=== PATIENT | female | born 1930 | race Caucasian/White ===

== ENCOUNTER 2016-11-09 09:11 | Emergency (ER) | payer MEDICARE, OTHER ==
[2016-11-09] MEDS ORDERED: NS 0.9% 1000 ML* 1,000 ML IV ONE (10:30)
[2016-11-09] MEDS ORDERED: Meclizine TAB* 12.5 MG PO ONE (10:30)
[2016-11-09] MEDS ORDERED: Diazepam TAB(*) 5 MG PO ONE (10:30)
--- NOTE | 2016-11-09 10:57 | RAD ---
HISTORY: Vertigo COMPARISONS: March 25, 2016 TECHNIQUE: Multiple contiguous axial CT scans were obtained of the head without intravenous contrast. FINDINGS: HEMORRHAGE/INFARCT: There is no hemorrhage or acute infarct. MASSES/SHIFT: There is no mass or shift. EXTRA-AXIAL SPACES: There are no extra-axial fluid collections. SULCI AND VENTRICLES: The sulci and ventricles are normal in size and position for the patient's stated age. CEREBRUM: There is hypoattenuation of the periventricular and subcortical white matter. BRAINSTEM: There are no focal parenchymal abnormalities. CEREBELLUM: There are no focal parenchymal abnormalities. VESSELS: There is calcification of the cavernous segments of the internal carotid arteries bilaterally and of the distal vertebral arteries bilaterally. PARANASAL SINUSES: The paranasal sinuses are clear. ORBITS: The orbits are unremarkable. BONES AND SOFT TISSUE: No bone or soft tissue abnormalities are noted. OTHER: None IMPRESSION: NO ACUTE INTRACRANIAL PATHOLOGY. CHRONIC SMALL VESSEL ISCHEMIC CHANGES.
[2016-11-09 11:19] LABS: Hematocrit 40 % (35-47); Hemoglobin 13.3 g/dl (12.0-16.0); Mean Corpuscular HGB Conc 34 g/dl (31-36); Mean Corpuscular Hemoglobin 30 pg (27-31); Mean Corpuscular Volume 90 fL (80-97); Mean Platelet Volume 8 um3 (7.4-10.4); Red Cell Distribution Width 13 % (10.5-15); White Blood Count 8.1 10^3/ul (3.5-10.8)
--- NOTE | 2016-11-09 11:32 | RAD ---
HISTORY: Vertigo COMPARISONS: March 25, 2016 VIEWS: 2: Frontal dual-energy and lateral views of the chest. FINDINGS: CARDIOMEDIASTINAL SILHOUETTE: The cardiomediastinal silhouette is normal. ILANA: The ilana are normal. PLEURA: The costophrenic angles are sharp. No pleural abnormalities are noted. LUNG PARENCHYMA: There is hyperinflation with flattening of the diaphragm and expansion of the AP diameter of the chest. ABDOMEN: The upper abdomen is clear. There is no subphrenic gas. BONES AND SOFT TISSUES: Degenerative changes are noted along the spine. There is diffuse osteopenia. OTHER: None. IMPRESSION: HYPERINFLATION, CONSISTENT WITH COPD. NO ACTIVE CARDIOPULMONARY DISEASE.
[2016-11-09 11:38] LABS: ALT 11 U/L (7-52); AST 14 U/L (13-39); Albumin 4.1 g/dL (3.2-5.2); Alkaline Phosphatase 92 U/L (34-104); Anion Gap 7 mmol/L (2-11); BUN/Creatinine Ratio 14.9 (8-20); Blood Urea Nitrogen 10 mg/dL (6-24); C Reactive Protein < 1.00 mg/L (< 5.00); CO2 Carbon Dioxide 27 mmol/L (22-32); Calcium 9.3 mg/dL (8.6-10.3); Chloride 98 mmol/L (101-111); EGFR African American 107.6 (>60); EGFR Non-African American 83.7 (>60); Globulin 3.2 g/dL (2-4); Glucose 109 mg/dL (70-100); Magnesium 2.2 mg/dL (1.9-2.7); Potassium 4.2 mmol/L (3.5-5.0); Sodium 132 mmol/L (133-145); Total Protein 7.3 g/dL (6.4-8.9)
[2016-11-09 12:07] LABS: Urine Bacteria Absent (Absent); Urine Bilirubin Negative (Negative); Urine Glucose Negative (Negative); Urine Nitrite Negative (Negative)
[2016-11-09 12:15] LABS: TSH (Thyroid Stimulating Horm) 1.27 mcIU/mL (0.34-5.60)
[2016-11-09 12:40] VITALS: BP 154/68
--- NOTE | 2016-11-09 17:10 | ED ---
Nabil Fernando Billy, scribed for Crow Lizarraga MD on 11/09/16 at 1026 . Dizziness - HPI Summary HPI Summary: Patient is an 86 year-old female coming to [facility] with her son for evaluation of 10 days of dizziness, roomspinning, and nausea. She states that her symptoms are worse with head position change. This morning, she was able to tolerate her medications. However, later on in the morning, as she was seated at the kitchen table, she felt near-syncopal and weak. She has had chills but denies any earache, tinnitus, sinus pressure, postnasal drip. Denies chest pain. She has had vertigo in the past, with the most recent episode in March 2016. Patient was seen by her PCP at [facility] yesterday. Per patient, her physician did not prescribe her any medications for vertigo at that visit. - History Of Current Complaint Chief Complaint: EDDizziness Stated Complaint: DIZZY/RT SIDE ABD PAIN Time Seen by Provider: 11/09/16 10:17 Hx Obtained From: Patient Timing: Intermittent Episode Lasting Severity Initially: Moderate Severity Currently: Moderate Character: Room Spinning, Dizzy Aggravating Factor(s): Change In Head Position Alleviating Factor(s): Lying Down Associated Signs And Symptoms: Positive: Nausea - Allergies/Home Medications Allergies/Adverse Reactions: Allergies Allergy/AdvReac Type Severity Reaction Status Date / Time Erythromycin Allergy Rash Verified 06/21/15 13:34 PMH/Surg Hx/FS Hx/Imm Hx Cardiovascular History: Reports: Hx Hypertension Neurological History: Reports: Hx Transient Ischemic Attacks (TIA) - 7 years ago - Cancer History Hx Chemotherapy: No Hx Radiation Therapy: No - Surgical History Surgery Procedure, Year, and Place: Tonsillectomy age 21, HYSTERECTOMY Infectious Disease History: No Infectious Disease History: Denies: Traveled Outside the [place] in Last 30 Days - Family History Known Family History: Positive: Hypertension - Social History Alcohol Use: None Hx Substance Use: No Substance Use Type: Reports: None Hx Tobacco Use: No Smoking Status (MU): Never Smoked Tobacco Review of Systems Positive: Chills Negative: Sore Throat, Ear Ache, Nasal Discharge Negative: Chest Pain Positive: Nausea Neurological: Other - dizziness All Other Systems Reviewed And Are Negative: Yes Physical Exam - Summary Physical Exam Summary: VITAL SIGNS: Reviewed. GENERAL: Patient is a well developed and nourished female who is lying comfortable in the stretcher. Patient is not in any acute respiratory distress. HEAD AND FACE: No signs of trauma. No ecchymosis, hematomas or skull depressions. No sinus tenderness. EYES: PERRLA, EOMI x 2, No injected conjunctiva, no nystagmus. No photophobia. EARS: Hearing grossly intact. Ear canals and tympanic membranes are within normal limits. MOUTH: Oropharynx within normal limits. NECK: Supple, trachea is midline, no adenopathy, no JVD, no carotid bruit, no c- spine tenderness, neck with full ROM. No meningeal signs, no Kernig's or brudzinskis signs. CHEST: Symmetric, no tenderness at palpation LUNGS: Clear to auscultation bilaterally. No wheezing or crackles. CVS: Regular rate and rhythm, S1 and S2 present, no murmurs or gallops appreciated. ABDOMEN: Soft, non-tender. No signs of distention. No rebound no guarding, and no masses palpated. Bowel sounds are normal. EXTREMITIES: FROM in all major joints, no edema, no cyanosis or clubbing. NEURO: Alert and oriented x 3. No acute neurological deficits. Speech is normal and follows commands. SKIN: Dry and warm Triage Information Reviewed: Yes Vital Signs On Initial Exam: Initial Vitals Temp Pulse Resp BP Pulse Ox 97.8 F 75 18 186/75 100 11/09/16 09:13 11/09/16 09:13 11/09/16 09:13 11/09/16 09:13 11/09/16 09:13 Vital Signs Reviewed: Yes Diagnostics - Vital Signs Vital Signs Temp Pulse Resp BP Pulse Ox 11/09/16 09:13 97.8 F 75 18 186/75 100 - Laboratory Result Diagrams: 11/09/16 11:10 11/09/16 11:10 Lab Statement: Any lab studies that have been ordered have been reviewed, and results considered in the medical decision making process. - Radiology CXR Radiology Interpretation Completed By: Radiologist - Hyperinflation, consistent with COPD. No active cardiopulmonary disease. - CT Brain CT Interpretation Completed By: Radiologist - No acute intracranial pathology. Chronic small vessel ischemic changes. - EKG 09 EKG Interpretation: NSR 69 bpm, ST depressions in V4 V5 V6, similar to EKG on 9/ 22/10 Re-Evaluation - Re-Evaluation First Eval Re-Evaluation Time: 13:09 Change: Improved Comment: Son has requested further tests and imaging. The patient, however, is feeling much better now. Second Eval Re-Evaluation Time: 13:25 Comment: Discussed with patient and her son, in-depth, the plan for discharge, and that further imaging is not necessary at this time, per Dr. Myrick. They agree and understand. Dizzy Course/Dx - Course Assessment/Plan: Patient is an 86 year-old female coming to [facility] with her son for evaluation of 10 days of dizziness, roomspinning, and nausea. She states that her symptoms are worse with head position change. This morning, she was able to tolerate her medications. However, later on in the morning, as she was seated at the kitchen table, she felt near-syncopal and weak. She has had chills but denies any earache, tinnitus, sinus pressure, postnasal drip. Denies chest pain. She has had vertigo in the past, with the most recent episode in March 2016. Patient was seen by her PCP at [facility] yesterday. Per patient, her physician did not prescribe her any medications for vertigo at that visit. Test results WNL except for sodium of 132, glucose of 109. UA shows no UTI. CXR shows COPD without active cardiopulmonary disease. CT brain shows no acute intracranial pathology. In the ED course, the patient was given IV fluids, valium and antivert for the dizziness and vertigo, and the symptoms improved. At this time, I ambulated the patient around the ED with a good and steady walk , and she felt no dizziness. I also discussed the case with the patients son who requested an MRI of the brain and neck. I explained to the patient that the patients symptoms have already improved. The patient has been having these symptoms for the last 10 days, even if the patient has a posterior infarct, at this point, there is no treatment which would reverse the injury. He requested to speak with one of the neurologists to obtain MRI imaging. So I discussed the case with Dr. Myrick who did not agree with MRI/MRA imaging of the brain or neck. If needed, they could follow up as an outpatient, but not as emergent testing. The patients son was not very happy with this decision, however, he understands and agrees. I instructed the patient and her son that if any changes , such as worsening of vertigo, weakness in the upper or lower extremities, the patient should return immediately to the ED for further workup and management. The patient is hemodynamically stable, A&Ox3. - Diagnoses Differential Diagnosis/HQI/PQRI: CVA, Meniere's Disease, Transient Ischemic Attack, Other - Vertigo Provider Diagnoses: Vertigo - Provider Notifications Discussed Care Of Patient with: Dr. Myrick (neurology) at 1320: further imaging is not necessary at this time. Discharge - Discharge Plan Condition: Stable Disposition: HOME Prescriptions: Meclizine TAB* [Antivert 12.5 TAB*] 25 mg PO TID PRN #30 tab PRN Reason: Vertigo Patient Education Materials: Vertigo (ED) Referrals: Aris Fishman MD [Primary Care Provider] - The documentation as recorded by the Nabil solis Billy accurately reflects the service I personally performed and the decisions made by me, Crow Lizarraga MD.
== END 2016-11-09 14:20 | disposition home or self-care (01) ==
LOC: ED 09:11
DX: R42 Dizziness and giddiness (principal); R11.0 Nausea; R68.83 Chills (without fever)
CPT/HCPCS: 36415; 70450; 71020; 80053; 81003; 81015; 83605; 83735; 83880; 84443; 84484; 85025; 86140; 87086; 93005; 96360; 99283; A9270-GY

== ENCOUNTER 2018-05-18 10:00 | Emergency (ER) | payer MEDICARE, BC ==
[2018-05-18] MEDS ORDERED: Ibuprofen TAB* 400 MG PO ONE (10:22)
--- NOTE | 2018-05-18 10:29 | UC ---
Back Pain HPI - HPI Summary HPI Summary: 88-year-old woman comes in to clinic today with a chief complaint of back pain is been going on for about a week. It's in the middle lower back it's worse with twisting turning bending. No weakness or numbness the pain does not radiate down the legs. She had been shoveling snow prior to the pain onset. Otherwise no known trauma. During review of systems the patient talks about concern of blood pressure heart attack and stroke bladder prolapse and a variety of other medical issues. She denies any chest pain or focal weakness or numbness. She does say that she urinates frequently. Denies any fevers or chills. - History of Current Complaint Stated Complaint: BACK PAIN Time Seen by Provider: 05/18/18 10:06 - Allergies/Home Medications Allergies/Adverse Reactions: Allergies Allergy/AdvReac Type Severity Reaction Status Date / Time erythromycin base Allergy Rash Verified 05/18/18 10:06 Home Medications: Home Medications Polyethylene Glycol 3350* [Miralax*] 17 gm PO BEDTIME 05/18/18 [History] dilTIAZem HCl [Diltiazem HCl ER] 240 mg PO DAILY 05/18/18 [History Confirmed ] PMH/Surg Hx/FS Hx/Imm Hx Previously Healthy: Yes Endocrine History: Dyslipidemia Cardiovascular History: Hypertension - Surgical History Surgical History: Yes Surgery Procedure, Year, and Place: Tonsillectomy age 21, HYSTERECTOMY - Family History Known Family History: Positive: None, Hypertension - Social History Alcohol Use: None Substance Use Type: None Smoking Status (MU): Never Smoked Tobacco - Immunization History Most Recent Influenza Vaccination: none Most Recent Tetanus Shot: unable to determine Most Recent Pneumonia Vaccination: unable to determine but had vaccine about 10 years ago Review of Systems All Other Systems Reviewed And Are Negative: Yes Constitutional: Positive: Negative Skin: Positive: Negative Eyes: Positive: Negative ENT: Positive: Negative Respiratory: Positive: Negative Cardiovascular: Positive: Negative Gastrointestinal: Positive: Negative Genitourinary: Positive: Frequency Motor: Positive: Negative Neurovascular: Positive: Negative Musculoskeletal: Positive: Other: - SEE HPI Neurological: Positive: Negative Psychological: Positive: Negative Is Patient Immunocompromised?: No Physical Exam Triage Information Reviewed: Yes Appearance: Well-Appearing, Well-Nourished, Pain Distress - MILD, WITH BACK MOVEMENT Vital Signs Reviewed: Yes Eye Exam: Normal Eyes: Positive: Conjunctiva Clear Neck exam: Normal Neck: Positive: Supple Respiratory: Positive: Lungs clear, Normal breath sounds, No respiratory distress Cardiovascular: Positive: RRR Abdomen Description: Positive: Soft, Other: - Patient reports mild tenderness to palpation in the lower abdomen patient describes mild tenderness in the lower abdomen with palpation Bowel Sounds: Positive: Present Musculoskeletal Exam: Normal Musculoskeletal: Positive: Strength Intact, ROM Intact Neurological Exam: Normal Neurological: Positive: Alert, Muscle Tone Normal Psychological Exam: Normal Psychological: Positive: Age Appropriate Behavior Skin Exam: Normal Back Pain Course/Dx - Course Course Of Treatment: Order Information: CT SPINE LUMBAR W/O. Accession Number: [id number]. CPT: 53208. HISTORY: LOW BACK PAIN. COMPARISONS: None. TECHNIQUE: Multiple contiguous axial CT scans were obtained of the lumbar spine without. intravenous contrast, with coronal and sagittal multiplanar reformations. FINDINGS: There is a transitional last lumbar type vertebral body which will be labeled S1. for the purposes of counting. SPINAL CANAL: Evaluation of the central canal is limited on CT technique; however, there. is no obvious canalicular mass or epidural hemorrhage. ALIGNMENT: There is a scoliotic curvature of the spine. There is grade 1 anterolisthesis. of L5 on S1. There is trace retrolisthesis of L2 on L3 and L3-L4 and L4 on L5. VERTEBRAL BODIES: There is multilevel anterolateral marginal osteophyte formation with. sclerotic reactive endplate changes most pronounced at L2-L3, L3-L4, and L4-L5. JOINTS: There is facet osteoarthritis most pronounced at L4- L5 and L5-S1. MUSCULATURE: There is mild fatty infiltration. INTERVERTEBRAL DISCS: There is diffuse loss of intervertebral disc height throughout the. spine. AXIAL IMAGES: T12-L1: There is no osseous neural foraminal narrowing or central canal stenosis. L1-L2: There is no osseous neural foraminal narrowing or central canal stenosis. L2-L3: There is a broad-based disc bulge. There is marginal osteophyte formation at the. neural foramina bilaterally. There is moderate right neuroforaminal narrowing. There is. mild narrowing of the central canal. L3-L4: There is a broad-based disc bulge. There is moderate bilateral neuroforaminal. narrowing. There is moderate narrowing of the central canal. L4-L5: There is a broad-based disc bulge. There is ligamentous and facet hypertrophy. There is severe bilateral neuroforaminal narrowing. There is severe narrowing of the. central canal. L5-S1: There is a broad- based disc bulge/rolled disc. There is moderate bilateral. neuroforaminal narrowing. There is severe narrowing of the central canal. SOFT TISSUES: There is atherosclerosis of the aorta. A right ovarian cyst is noted. measuring simple fluid in attenuation and 2.2 cm in size. OTHER: None. IMPRESSION: 1. SCOLIOSIS. 2. DEGENERATIVE DISC DISEASE AND OSTEOARTHRITIS. 3. THERE IS MULTILEVEL NEUROFORAMINAL NARROWING DESCRIBED ABOVE. 4. THERE IS SEVERE NARROWING OF THE CENTRAL CANAL AT L4-L5, AND L5-S1 WITH MODERATE. NARROWING AT L3-L4 AND MILD NARROWING L2-L3. 5. 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 6. THERE IS A 2.2 CM RIGHT OVARIAN CYST MEASURING SIMPLE FLUID IN ATTENUATION. ___ . <Electronically signed by Krishna Jaffe MD in OV> 05/18/18 1119. Order Information: CT ABD/PEL W/O. Accession Number: [id number]. CPT: 05596. CLINICAL HISTORY: ABD PAIN/BACK PAIN. COMPARISON: October 13, 2004. TECHNIQUE: Multiple contiguous axial CT scans were obtained of the abdomen and pelvis,. without intravenous contrast enhancement. Coronal and sagittal multiplanar reformations. are submitted for review. Oral contrast was not administered. FINDINGS: Evaluation is limited due to the lack of intravenous contrast. This limits evaluation of. the solid organs and vasculature. LUNG BASES: The lung bases are clear. LIVER: The liver is normal in shape, size, contour, and attenuation. BILE DUCTS: There is no intrahepatic or extrahepatic biliary dilatation. GALLBLADDER: The gallbladder is normal, without pericholecystic inflammatory change. PANCREAS: The pancreas is normal, without mass or ductal dilatation. SPLEEN: Normal in size and appearance. UPPER GI TRACT: Evaluation of the gastrointestinal tract is limited by incomplete gastric. distention. There is a small sliding hiatal hernia. SMALL BOWEL AND MESENTERY: The small bowel is normal in contour, course, and caliber. There is no obstruction or dilatation. COLON: The colon is normal in contour, course, caliber. There is no pericolonic. inflammatory change. There is large amount stool throughout the colon. There is a tubular,. vermiform, hollow viscus that is blind ending, and originates from the cecum, consistent. with a normal appendix. There is no periappendiceal inflammatory change. This is best seen. on axial images 43 through 46. ADRENALS: Normal bilaterally. KIDNEYS: The kidneys are normal in shape, size, contour, and axis. There is no. hydronephrosis or nephrolithiasis. BLADDER: The bladder is smooth in contour. PELVIC ORGANS: The uterus and adnexa are grossly normal for technique. AORTA: There is calcific atherosclerotic disease of the abdominal aorta and its branches,. without aneurysmal dilatation. IVC: Unremarkable. LYMPH NODES: There is no lymphadenopathy by size criteria. ABDOMINAL WALL: There is no evidence for abdominal wall hernia. BONES AND SOFT TISSUES: There is a scoliotic curvature of the spine. There is diffuse. osteopenia. Degenerative changes are noted of the spine and hips. OTHER: None. IMPRESSION: 1. ATHEROSCLEROSIS. 2. SMALL HIATAL HERNIA. 3. DEGENERATIVE CHANGES. 4. NO ACUTE NONCONTRAST CT PATHOLOGY OF THE VISUALIZED ABDOMEN OR PELVIS. . <Electronically signed by Krishna Jaffe MD in [facility]> 1109. I discussed the CT and urine results with the patient and her . Pain is decreased with ibuprofen 400 mg by mouth in clinic. Urine has some leukocytes. Patient has had some urinary frequency therefore we will treat for UTI at this time. I let the patient know if she has any worsening of her condition with pain fevers she feels ill abdominal pain weakness numbness she needs to get reevaluated right away. - Differential Dx/Diagnosis Provider Diagnosis: UTI (urinary tract infection), Low back pain Discharge - Sign-Out/Discharge Documenting (check all that apply): Patient Departure All imaging exams completed and their final reports reviewed: Yes - Discharge Plan Condition: Stable Disposition: HOME Prescriptions: Nitrofurantoin Monohyd/M-Cryst [Macrobid 100 mg Capsule] 100 mg PO BID #14 cap Patient Education Materials: Urinary Tract Infection in Women (ED), Acute Low Back Pain (ED), Lower Back Exercises (ED) Referrals: Julia Kern MD [Primary Care Provider] - Additional Instructions: FOLLOW UP WITH YOUR DOCTOR. GET RECHECKED FOR ANY WORSENING OF YOUR CONDITION; FEVER, WEAKNESS, NUMBNESS, YOU FEEL ILL, PAIN OR QUESTIONS OR CONCERNS. - Billing Disposition and Condition Condition: STABLE Disposition: Home
[2018-05-18 10:32] VITALS: BP 195/86
== END 2018-05-18 12:00 | disposition home or self-care (01) ==
LOC: UCEAST 10:00
DX: N39.0 Urinary tract infection, site not specified (principal); M54.5 Low back pain; Z88.1 Allergy status to other antibiotic agents; I10 Essential (primary) hypertension
CPT/HCPCS: 72131; 74176; 81003; 87086; 99212; A9270-GY; G0463

== ENCOUNTER 2019-03-23 09:00 | Emergency (ER) | payer MEDICARE, BC ==
--- NOTE | 2019-03-23 10:19 | UC ---
Back Pain HPI - HPI Summary HPI Summary: 89 yo female with left mid thoraic back pain x 2 days severe no relief with tylenol has had shingles in past and states this does not feel like shingles no falls no CP or SOB pain keep her up last ppm states she tolerated tramadol well son confirms and stated he can help her home and keep an eye on her no UTI symptoms pain worse with movement /twiosting/bending no abd pain - History of Current Complaint Chief Complaint: UCBackPain Stated Complaint: BACK PAIN Time Seen by Provider: 03/23/19 09:59 Hx Obtained From: Patient Onset/Duration: Gradual Onset, Lasting Days Timing: Constant Severity Initially: Severe Severity Currently: Severe Pain Intensity: 9 Pain Scale Used: 0-10 Numeric Back Pain: Is Discrete @ Character: Dull, Aching, Throbbing, Spasmodic Aggravating Factor(s): Movement, Bending Alleviating Factor(s): Nothing Associated Signs And Symptoms: Positive: Negative Related History: Similar Episode Dx As - Back pain/strain Full Body (No Head): 1 - pain here - Allergies/Home Medications Allergies/Adverse Reactions: Allergies Allergy/AdvReac Type Severity Reaction Status Date / Time erythromycin base Allergy Rash Verified 03/23/19 09:25 PMH/Surg Hx/FS Hx/Imm Hx Previously Healthy: Yes Cardiovascular History: Hypertension - Surgical History Surgical History: Yes Surgery Procedure, Year, and Place: Tonsillectomy age 21, HYSTERECTOMY - Family History Known Family History: Positive: None, Hypertension - Social History Alcohol Use: None Substance Use Type: None Smoking Status (MU): Never Smoked Tobacco - Immunization History Most Recent Influenza Vaccination: none Most Recent Tetanus Shot: unable to determine Most Recent Pneumonia Vaccination: unable to determine but had vaccine about 10 years ago Review of Systems All Other Systems Reviewed And Are Negative: Yes Constitutional: Positive: Negative Skin: Positive: Negative Eyes: Positive: Negative ENT: Positive: Negative Respiratory: Positive: Negative Cardiovascular: Positive: Negative Gastrointestinal: Positive: Negative Genitourinary: Positive: Negative Motor: Positive: Negative Neurovascular: Positive: Negative Musculoskeletal: Positive: Other: - back pain as discussed Neurological: Positive: Negative Psychological: Positive: Negative Physical Exam Triage Information Reviewed: Yes Appearance: Well-Appearing, No Pain Distress, Well-Nourished Vital Signs: Initial Vital Signs Temp 98.1 F 03/23/19 09:18 Pulse 72 03/23/19 09:18 Resp 18 03/23/19 09:18 BP 188/84 03/23/19 09:18 Pulse Ox 99 03/23/19 09:18 Vital Signs Reviewed: Yes Eyes: Positive: Conjunctiva Clear ENT: Positive: Hearing grossly normal, Pharynx normal. Negative: Pharyngeal erythema, Nasal congestion, Nasal drainage, Trismus, Muffled voice, Hoarse voice Dental: Negative: Abscess @ Neck: Positive: Supple Respiratory: Positive: Lungs clear, Normal breath sounds, No respiratory distress, No accessory muscle use Cardiovascular: Positive: RRR, No Murmur Abdomen Description: Positive: Nontender, No Organomegaly. Negative: Bruit Bowel Sounds: Positive: Present Musculoskeletal: Positive: ROM Intact, No Edema Neurological: Positive: Alert Psychological Exam: Normal Skin Exam: Normal - Additional Comments -SLR normal gait Dtrs symmetrical Procedures - Sedation Patient Received Moderate/Deep Sedation with Procedure: No Diagnostics - Radiology No standard instances Radiology Interpretation Completed By: Radiologist Summary of Radiographic Findings: scoliosis. DDD - EKG Cardiac Rate: NL Cardiac Rhythm: Sinus: Normal Ectopy: None ST Segment: Normal Back Pain Course/Dx - Differential Dx/Diagnosis Provider Diagnosis: Degenerative disk disease Discharge ED - Sign-Out/Discharge Documenting (check all that apply): Patient Departure All imaging exams completed and their final reports reviewed: Yes - Discharge Plan Condition: Stable Disposition: HOME Prescriptions: traMADol TAB* [Ultram*] 25 mg PO Q6HR PRN #8 tab MDD 4 PRN Reason: Pain - Severe Patient Education Materials: Degenerative Disc Disease (ED) Referrals: Julia Kern MD [Primary Care Provider] - 3 Days Additional Instructions: continue tylenol tramadol will cause drowsiness take only when necessary - Billing Disposition and Condition Condition: STABLE Disposition: Home
[2019-03-23] MEDS ORDERED: traMADol TAB* 50 MG PO ONE ×2 (11:10→11:42)
[2019-03-23 11:26] VITALS: BP 202/85
== END 2019-03-23 11:52 | disposition home or self-care (01) ==
LOC: UCEAST 09:00
DX: M51.34 Other intervertebral disc degeneration, thoracic region (principal); I10 Essential (primary) hypertension
CPT/HCPCS: 72080; 81003; 87086; 93005; 99212; A9270-GY; G0463

== ENCOUNTER 2019-03-25 00:14 | Emergency (ER) | payer MEDICARE, BC ==
--- OUTSIDE RECORDS SUMMARY | 2019-03-25 00:32 | XMS REPORT | Summary of Care ---
:1930 Author Organization [facility] Address [address] [facility] [place] [address] Care Team Providers Name Role Phone Julia Kern Primary Care Provider Reason for Visit Reason Comments Back Pain c/o mid back pain, started Friday night. Denies any injury. Did a little lifting. Urgent care yesterday. EKG/urine etc all negative. Still with pain with moving d/t pain medication Hypertension running high Encounter Details Date Type Department Care Team Description 03/24/2019 Office Visit [place] [facility] Julia Kern MD Essential hypertension (Primary Dx); Medicine [address] Pedal edema; [address] [place] [address] Sprain of costal cartilage, [place] [address] [phone] Allergies Active Allergy Reactions Severity Noted Date Comments Erythromycin Rash 11/08/2016 Losartan Other 12/06/2016 Elevation in potassium documented as of this encounter (statuses as of 03/24/2019) Medications Medication Sig Dispensed Refills Start Date End Date Status atorvastatin Take 1 Tab by 90 Tab 3 12/09/2018 Active (LIPITOR) 10 MG Oral mouth DAILY. TabIndications: Mixed hyperlipidemia diltiazem (CARTIA Take 1 Cap by 90 Cap 3 12/09/2018 Active XT) 240 MG Oral mouth DAILY. CAPSULE SR 24 HRIndications: Essential hypertension Triamcinolone 1 Appl by Apply 30 g 1 12/09/2018 Active Acetonide 0.5 % externally Apply externally route TWICE CreamIndications: DAILY. Apply Eczema, unspecified twice/ day type tramadol (ULTRAM) 50 Take 50 mg by 0 Active MG Oral mouth EVERY TabIndications: FOUR HOURS Sprain of costal NEEDED (pain). cartilage, initial encounter tramadol (ULTRAM) 50 Take 1 Tab by 30 Tab 0 03/24/2019 Active MG Oral Tab mouth EVERY EIGHT HOURS NEEDED (back pain). Max Daily Amount: 150 mg. aspirin (ECOTRIN) 81 Take 81 mg by 0 Discontinued MG Oral Tab EC mouth DAILY. 9 Senna 30 MG Oral Take by mouth. 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 documented as of this encounter Last Filed Vital Signs Vital Sign Reading Time Taken Comments Blood Pressure 190/91 03/24/2019 2:59 PM EDT Pulse 73 03/24/2019 2:55 PM EDT Temperature - - Respiratory Rate - - Oxygen Saturation 96% 03/24/2019 2:55 PM EDT Inhaled Oxygen Concentration - - Weight 63 kg (139 lb) 03/24/2019 2:55 PM EDT Height 166.4 cm (5' 5.5") 03/24/2019 2:55 PM EDT Body Mass Index 22.78 03/24/2019 2:55 PM EDT documented in this encounter Patient Instructions Patient InstructionsJulia Kern MD - 03/24/2019 2:40 PM EDTBack pain Cool / warm meng Alternate Other topicals - Medication - Tramadol combined with actetamonphen (tylenol - 1000 mg 3x day- ) For the elevated blood pressure - associated with pain documented in this encounter Progress Notes Julia Kern MD - 03/24/2019 2:40 PM EDT NAME:Delisa Moreno [birth year] ENC Date: 03/24/2019 CC: Chief Complaint Patient presents with Back Pain c/o mid back pain, started Friday night. Denies any injury. Did a little lifting. Urgent care yesterday. EKG/urine etc all negative. Still with pain with moving d/t pain medication Hypertension running high Delisa Moreno is a 89-y.o. female 1. Mid back pain - Seen at [facility] and xray done which did not show any acute process - Has tried lidoderm without relief ( I gave yesterday) 2. Elevated blood pressure at [facility] and here today - Is in pain- Current Outpatient Medications Medication Sig atorvastatin (LIPITOR) 10 MG Oral Tab Take 1 Tab by mouth DAILY. diltiazem (CARTIA XT) 240 MG Oral CAPSULE SR 24 HR Take 1 Cap by mouth DAILY. tramadol (ULTRAM) 50 MG Oral Tab Take 50 mg by mouth EVERY FOUR HOURS NEEDED (pain). tramadol (ULTRAM) 50 MG Oral Tab Take 1 Tab by mouth EVERY EIGHT HOURS NEEDED (back pain).Max Daily Amount: 150 mg. Triamcinolone Acetonide 0.5 % Apply externally Cream 1 Appl by Apply externally route TWICE DAILY. Apply twice/ day No current facility-administered medications for this visit. Patient Active Problem List Diagnosis Date Noted Pedal edema 12/06/2016 Essential hypertension 11/08/2016 Vertigo 11/08/2016 Constipation 11/08/[address] Lambert Mixed hyperlipidemia 11/08/2016 No family history on file. No cardiopulmonary symptoms No upper or lower GI complaints No urinary tract symptoms. No bruising/ bleeding. No neurological complaints . No insomnia.+ . Social History Tobacco Use Smoking status: Never Smoker Smokeless tobacco: Never Used Substance Use Topics Alcohol use: No Drug use: No OBJECTIVE: BP (!) 190/91 | Pulse 73 | Ht 5' 5.5" (1.664 m) | Wt 139 lb (63 kg) | SpO2 96% | BMI 22.78 kg/m . Left lower rib - tender to palpation Lungs Clear CV rrr Abd soft, nontender, no organomegaly Ext Neuro: intellect intact ; motor including gait unremarkable A/P ICD-9-CM ICD-10-CM 1. Essential hypertension 401.9 I10 2. Pedal edema 782.3 R60.0 3. Acute midline thoracic back pain 724.1 M54.6 tramadol (ULTRAM) 50 MG Oral Tab 4. Sprain of costal cartilage, initial encounter 848.3 S23.41XA Patient Instructions Back pain Cool / warm meng Alternate Other topicals - Medication - Tramadol combined with actetamonphen (tylenol - 1000 mg 3x day- ) For the elevated blood pressure - associated with pain AUTHOR: Julia Kern MD 16:04 03/24/2019 documented in this encounter Plan of Treatment Health Maintenance Due Date Last Done Comments MEDICARE ANNUAL WELLNESS VISIT 1930 ZOSTER IMMUNIZATION SERIES (1 1981 of 2) PNEUMOCOCCAL 65+YRS (1 of 2 - 01/05/1996 PCV13) INFLUENZA VACCINE (#1) 2019 DEPRESSION SCREENING 12/10/2019 12/09/2018 FALL RISK ASSESSMENT 12/10/2019 12/09/2018, 12/09/2018 HPV IMMUNIZATION SERIES Aged Out No longer eligible based on patient's age to complete this topic MENINGOCOCCAL VACCINE IMM Aged Out No longer eligible based on patient's age to complete this topic documented as of this encounter Goals Goal Patient Goal Associated Recent Patient-Stated? Author Type Problems Progress Blood Pressure Blood Pressure 190/91 No Concha, < 150/90 (03/24/2019 MD Julia 2:59 PM EDT) Note: This is an individualized treatment (blood pressure) goal for Delisa Signore: Displayed above (on the left) is your goal for blood pressure control. Your most recent blood pressure is also shown above, on the right. You should try to achieve blood pressures that are lower than your goal listed above (on the left). Take all prescribed medications as directed Self-management No Julia Kern MD Note: This is an individualized self-management goal for Delisa : Please take all prescribed medications as directed. 1. Do not skip doses. If you cannot afford your medications, talk with your doctor. 2. Use a pill reminder system such as a pill box if needed. Your pharmacist can help you with this. 3. Contact your Pharmacy 5 days before your medication runs out. If you cannot take your medications for any reasons, talk with your doctor. 4. Please bring all of your medication bottles and inhalers (or a list of all your medications/inhalers) with you to every visit. Potential barriers to meeting all of your care plan goals will continue to be addressed on an ongoing basis. documented as of this encounter Results Not on filedocumented in this encounter Visit Diagnoses Diagnosis Essential hypertension - Primary Unspecified essential hypertension Pedal edema Edema Sprain of costal cartilage, initial encounter documented in this encounter Guarantor Name Account Type Relation to Date of Phone Billing Patient Address Delisa Moreno Personal/Family 1930 [address] (Home) [address] [phone] [facility] [place] (Work) [place] [id number] documented as of this encounter
[2019-03-25 02:50] LABS: ABS Lymphocytes 0.9 10^3/ul (1.0-4.8); ABS Neutrophils 9.2 10^3/ul (1.5-7.7); Eosinophil % 0.1 %; Hematocrit 39 % (35-47); Hemoglobin 12.5 g/dL (12.0-16.0); Lymphocyte % 8.1 %; Mean Corpuscular HGB Conc 32 g/dL (31-36); Mean Corpuscular Hemoglobin 31 pg (27-31); Mean Corpuscular Volume 95 fL (80-97); Mean Platelet Volume 8.3 fL (7.4-10.4); Nucleated Red Blood Cells % 0.1; Platelet Count 122 10^3/uL (150-450); Red Blood Count 4.09 10^6 /uL (3.70-4.87); Red Cell Distribution Width 13 % (10-15); White Blood Count 11.1 10^3/uL (3.5-10.8)
[2019-03-25 02:59] LABS: Calcium 9.2 mg/dL (8.6-10.3); Total Bilirubin 0.4 mg/dL (0.2-1.0)
[2019-03-25 03:05] LABS: Albumin/Globulin Ratio 1.4 (1-3); BUN/Creatinine Ratio 26.9 (8-20); EGFR African American 134.7 (>60); EGFR Non-African American 111.3 (>60); Globulin 2.8 g/dL (2-4); Total Protein 6.8 g/dL (6.4-8.9)
[2019-03-25] MEDS ORDERED: Morphine 4 MG/ML VIAL (1 ml) 4 MG/ML VIAL IV ONE (03:12)
--- NOTE | 2019-03-25 03:16 | ED ---
Back Pain - HPI Summary HPI Summary: Pt is an 89 y/o F presenting to the ED with a chief complaint of back pain initially onset in the evening of 03/24/19. She notes she has been having spasms in her epigastric region that spread to her back, and has hx of constipation issues. She reports nausea, chills, and her abdomen feels very hard and bloated. She denies vomiting, hematuria, dysuria, weakness in her legs, or fevers. - History of Current Complaint Chief Complaint: EDBackInjuryPain Stated Complaint: CRAMPS/PAIN PER PT Time Seen by Provider: 03/25/19 02:17 Hx Obtained From: Patient Onset/Duration: Gradual Onset, Lasting Hours, Still Present Onset/Duration: Started Hours Ago, Still Present Timing: Constant, Lasting Hours Back Pain Location: Is Discrete @ - mid back Severity Initially: Moderate Severity Currently: Severe Pain Intensity: 10 Pain Scale Used: 0-10 Numeric Aggravating Symptom(s): Nothing Alleviating Symptom(s): Nothing Associated Signs And Symptoms: Positive: Abdominal Pain. Negative: Fever, Weakness - Allergies/Home Medications Allergies/Adverse Reactions: Allergies Allergy/AdvReac Type Severity Reaction Status Date / Time erythromycin base Allergy Rash Verified 03/25/19 00:27 PMH/Surg Hx/FS Hx/Imm Hx Previously Healthy: Yes Endocrine/Hematology History: Denies: Hx Anticoagulant Therapy Cardiovascular History: Reports: Hx Hypertension Neurological History: Reports: Hx Transient Ischemic Attacks (TIA) - 7 years ago , Other Neuro Impairments/Disorders - vertigo - Cancer History Hx Chemotherapy: No Hx Radiation Therapy: No - Surgical History Surgery Procedure, Year, and Place: Tonsillectomy age 21, HYSTERECTOMY Infectious Disease History: No Infectious Disease History: Reports: Hx Shingles Denies: Traveled Outside the [place] in Last 30 Days - Family History Known Family History: Positive: Hypertension - Social History Alcohol Use: None Hx Substance Use: No Substance Use Type: Reports: None Hx Tobacco Use: No Smoking Status (MU): Never Smoked Tobacco Review of Systems Positive: Chills. Negative: Fever Positive: Abdominal Pain, Nausea, Other - abd is hard and bloated. Negative: Vomiting Negative: dysuria, hematuria Positive: Myalgia - back pain Negative: Weakness All Other Systems Reviewed And Are Negative: Yes Physical Exam - Summary Physical Exam Summary: Constitutional: Well-developed, Well-nourished, Alert. (-) Distressed Skin: Warm, Dry HENT: Normocephalic; Atraumatic Eyes: Conjunctiva normal Neck: Musculoskeletal ROM normal neck. (-) JVD, (-) Stridor, (-) Tracheal deviation Cardio: Rhythm regular, rate normal, Heart sounds normal; Intact distal pulses; Radial pulses are 2+ and symmetric. (-) Murmur Pulmonary/Chest wall: Effort normal. (-) Respiratory distress, (-) Wheezes, (-) Rales Abd: Soft, Abd is distended with mild suprapubic tenderness, (-) Guarding, (-) Rebound Musculoskeletal: (-) Edema. Bilateral flank tenderness. Lymph: (-) Cervical adenopathy Neuro: Alert, Oriented x3 Psych: Mood and affect Normal Triage Information Reviewed: Yes Vital Signs On Initial Exam: Initial Vitals Temp Pulse Resp BP Pulse Ox 98.3 F 80 16 136/87 96 03/25/19 00:20 03/25/19 00:20 03/25/19 00:20 03/25/19 00:20 03/25/19 00:20 Vital Signs Reviewed: Yes Procedures - Sedation Patient Received Moderate/Deep Sedation with Procedure: No Diagnostics - Vital Signs Vital Signs Temp Pulse Resp BP Pulse Ox 03/25/19 00:20 98.3 F 80 16 136/87 96 - Laboratory Lab Results: Lab Results 03/25/19 03/25/19 Range/Units 02:42 02:42 WBC 11.1 H (3.5-10.8) 10^3/uL RBC 4.09 (3.70-4.87) 10^6 /uL Hgb 12.5 (12.0-16.0) g/dL Hct 39 (35-47) % MCV 95 (80-97) fL MCH 31 (27-31) pg MCHC 32 (31-36) g/dL RDW 13 (10-15) % Plt Count 122 L (150-450) 10^3/uL MPV 8.3 (7.4-10.4) fL Neut % (Auto) 82.5 % Lymph % (Auto) 8.1 % [place] % (Auto) 9.2 % Eos % (Auto) 0.1 % Baso % (Auto) 0.1 % Absolute Neuts (auto) 9.2 H (1.5-7.7) 10^3/ul Absolute Lymphs (auto) 0.9 L (1.0-4.8) 10^3/ul Absolute Monos (auto) 1.0 H (0-0.8) 10^3/ul Absolute Eos (auto) 0.0 (0-0.6) 10^3/ul Absolute Basos (auto) 0.0 (0-0.2) 10^3/ul Absolute Nucleated RBC 0.0 10^3/ul Nucleated RBC % 0.1 Sodium 128 L (135-145) mmol/L Potassium 4.0 (3.5-5.0) mmol/L Chloride 96 L (101-111) mmol/L Carbon Dioxide 21 L (22-32) mmol/L Anion Gap 11 (2-11) mmol/L BUN 14 (6-24) mg/dL Creatinine 0.52 (0.51-0.95) mg/dL Est GFR ( Amer) 134.7 (>60) Est GFR (Non-Af Amer) 111.3 (>60) BUN/Creatinine Ratio 26.9 H (8-20) Glucose 111 H (70-100) mg/dL Calcium 9.2 (8.6-10.3) mg/dL Total Bilirubin 0.40 (0.2-1.0) mg/dL AST 15 (13-39) U/L ALT 10 (7-52) U/L Alkaline Phosphatase 96 (34-104) U/L Total Protein 6.8 (6.4-8.9) g/dL Albumin 4.0 (3.2-5.2) g/dL Globulin 2.8 (2-4) g/dL Albumin/Globulin Ratio 1.4 (1-3) Result Diagrams: 03/25/19 02:42 03/25/19 02:42 Lab Statement: Any lab studies that have been ordered have been reviewed, and results considered in the medical decision making process. - CT CT a/p CT Interpretation Completed By: Radiologist Summary of CT Findings: 1. General colonic redundancy with moderate stool in the right colon and mild gas and stool in the left colon and is mildly increased overall since 05/18/2018 although the general pattern of distribution is similar. No focal. obstructing lesion is identified. 2. Trace left pleural effusion with minimal bibasilar fibro-atelectatic change and is increased since the prior study. ED physician has reviewed this report. L-spine CT CT Interpretation Completed By: Radiologist Summary of CT Findings: 1. There has been little change from 05/18/2018. No acute interval fracture or compression. 2. Levoscoliosis with degenerative changes and varying degrees of spinal stenosis. There is mild left neural foraminal stenosis at L5-S1. ED physician has reviewed this report. Back Pain Course/Dx - Course Course Of Treatment: Patient is here with bilateral flank pain. This is patient 's third visit to a doctor in the past 3 days. Patient had a CBC and CMP performed for grossly unremarkable. Patient negative urine at [facility]. Patient a CT scan of her spine showed no evidence of fracture. Patient had a CT scan of her abdomen showed no AAA, kidney stone, bowel obstruction - Diagnoses Provider Diagnoses: Bilateral flank pain Discharge ED - Sign-Out/Discharge Documenting (check all that apply): Patient Departure - Discharge Plan Condition: Stable Disposition: HOME Prescriptions: Acetaminophen with Codeine [Acetaminophen-Cod #3 Tablet] 1 each PO Q12HR PRN # 12 tablet MDD 2 tablets PRN Reason: Pain - Severe Patient Education Materials: Flank Pain (ED) Referrals: Julia Kern MD [Primary Care Provider] - Additional Instructions: Please call your primary care provider in the morning to schedule a follow-up appointment. Continue taking your medications at home. Return to the emergency department with any new or worsening symptoms. - Billing Disposition and Condition Condition: STABLE Disposition: Home - Attestation Statements Document Initiated by Demetriusibcami: Yes Documenting Scribe: Tiara Lassiter Provider For Whom Linda is Documenting (Include Credential): Negrito Sinclair MD. Scribe Attestation: Tiara Fernando, scribed for Negrito Sinclair MD. on 03/25/19 at 0610. Scribe Documentation Reviewed: Yes Provider Attestation: The documentation as recorded by the Tiara solis accurately reflects the service I personally performed and the decisions made by , Negrito Sinclair MD. Status of Scribe Document: Viewed
[2019-03-25] MEDS ORDERED: Iohexol 300* (CONTRAST) 10 ML SDV IV ONE (03:47)
[2019-03-25 03:54] VITALS: BP 161/78
== END 2019-03-25 05:38 | disposition home or self-care (01) ==
LOC: ED 00:14
DX: R10.31 Right lower quadrant pain (principal); R10.32 Left lower quadrant pain; I10 Essential (primary) hypertension; Z86.73 Personal history of transient ischemic attack (TIA), and cerebral infarction without residual deficits; Z90.710 Acquired absence of both cervix and uterus; Z88.1 Allergy status to other antibiotic agents; Z79.899 Other long term (current) drug therapy
CPT/HCPCS: 36415; 72131; 74177; 80053; 85025; 96374; 99282; J2270; Q9967